=== PATIENT | male | born 1980 | race Caucasian/White ===

== ENCOUNTER → 2019-10-06 11:03 | Outpatient (BNVA) | payer OTHER, SELFPAY | PROVIDERS: Family Provider Family Medicine; PCP Family Medicine; Visit Provider Psychiatry & Neurology Psychiatry | DX: F31.32 Bipolar disorder, current episode depressed, moderate (principal); Z79.899 Other long term (current) drug therapy; F31.2 Bipolar disorder, current episode manic severe with psychotic features | CPT/HCPCS: 80061; 83036 ==

== ENCOUNTER → 2020-03-07 13:20 | Outpatient (BNVA) | payer MEDICARE, MEDICAID, SELFPAY ==
[2019-10-07 11:07] VITALS: BP 153/81; BMI 45.1
== END ==
PROVIDERS: Family Provider Family Medicine; PCP Family Medicine; Visit Provider Nurse Practitioner Psychiatric/Mental Health
DX: F31.32 Bipolar disorder, current episode depressed, moderate (principal)
CPT/HCPCS: 99214

== ENCOUNTER → 2020-04-07 08:05 | Outpatient (BNVA) | payer MEDICARE, MEDICAID, SELFPAY ==
[2019-10-07 11:07] VITALS: BP 153/81; BMI 45.1
== END ==
PROVIDERS: Family Provider Family Medicine; PCP Family Medicine; Visit Provider Nurse Practitioner Psychiatric/Mental Health
DX: F31.32 Bipolar disorder, current episode depressed, moderate (principal)
CPT/HCPCS: 99214

== ENCOUNTER → 2020-06-28 08:27 | Outpatient (BNVA) | payer MEDICARE, MEDICAID, SELFPAY ==
[2019-10-07 11:07] VITALS: BP 153/81; BMI 45.1
== END ==
PROVIDERS: Family Provider Family Medicine; PCP Family Medicine; Visit Provider Nurse Practitioner Psychiatric/Mental Health
DX: F31.32 Bipolar disorder, current episode depressed, moderate (principal)
CPT/HCPCS: 99213

== ENCOUNTER → 2021-01-25 14:07 | Outpatient (BNVA) | payer MEDICARE, MEDICAID, SELFPAY ==
[2019-10-07 11:07] VITALS: BP 153/81; BMI 45.1
== END ==
PROVIDERS: Family Provider Family Medicine; PCP Family Medicine; Referring Provider Nurse Practitioner Family; Visit Provider Specialist
DX: M25.561 Pain in right knee (principal); M25.562 Pain in left knee
CPT/HCPCS: 73560; 73565

== ENCOUNTER → 2021-04-04 14:14 | Outpatient (BNVA) | payer MEDICARE, MEDICAID, SELFPAY ==
[2019-10-07 11:07] VITALS: BP 153/81; BMI 45.1
== END ==
PROVIDERS: Family Provider Family Medicine; PCP Family Medicine; Visit Provider Nurse Practitioner Psychiatric/Mental Health
DX: F12.20 Cannabis dependence, uncomplicated (principal); F39 Unspecified mood [affective] disorder; G89.29 Other chronic pain
CPT/HCPCS: 99214

== ENCOUNTER → 2021-04-18 09:14 | Outpatient (BNVA) | payer MEDICARE, MEDICAID, SELFPAY ==
[2019-10-07 11:07] VITALS: BP 153/81; BMI 45.1
== END ==
PROVIDERS: Family Provider Family Medicine; PCP Family Medicine; Visit Provider Nurse Practitioner Psychiatric/Mental Health
DX: F39 Unspecified mood [affective] disorder (principal); F12.20 Cannabis dependence, uncomplicated
CPT/HCPCS: 99214

== ENCOUNTER → 2021-05-23 08:46 | Outpatient (BNVA) | payer MEDICARE, MEDICAID, SELFPAY ==
[2019-10-07 11:07] VITALS: BP 153/81; BMI 45.1
== END ==
PROVIDERS: Family Provider Family Medicine; PCP Family Medicine; Visit Provider Nurse Practitioner Psychiatric/Mental Health
DX: F39 Unspecified mood [affective] disorder (principal); G89.29 Other chronic pain
CPT/HCPCS: 99213

== ENCOUNTER → 2021-06-20 07:33 | Outpatient (BNVA) | payer MEDICARE, MEDICAID, SELFPAY ==
[2019-10-07 11:07] VITALS: BP 153/81; BMI 45.1
== END ==
PROVIDERS: Family Provider Family Medicine; PCP Family Medicine; Visit Provider Nurse Practitioner Psychiatric/Mental Health
DX: F39 Unspecified mood [affective] disorder (principal); G89.29 Other chronic pain
CPT/HCPCS: 99214

== ENCOUNTER → 2021-10-24 14:46 | Outpatient (BNVA) | payer MEDICARE, MEDICAID, OTHER, SELFPAY ==
[2019-10-07 11:07] VITALS: BP 153/81; BMI 45.1
== END ==
PROVIDERS: Family Provider Family Medicine; PCP Family Medicine; Visit Provider Nurse Practitioner Psychiatric/Mental Health
DX: Z79.899 Other long term (current) drug therapy (principal)
CPT/HCPCS: 80053; 80061; 83036

== ENCOUNTER → 2022-10-29 11:41 | Outpatient (BNVA) | payer MEDICARE, MEDICAID, SELFPAY ==
[2019-10-07 11:07] VITALS: BP 153/81; BMI 45.1
== END ==
PROVIDERS: Family Provider Family Medicine; PCP Family Medicine; Visit Provider Nurse Practitioner Psychiatric/Mental Health
DX: Z79.899 Other long term (current) drug therapy (principal)
CPT/HCPCS: 80053; 80061; 83036

== ENCOUNTER 2023-05-02 20:00 | Outpatient (CLI) | payer MEDICARE, SELFPAY ==
[2019-10-07 11:07] VITALS: BP 153/81; BMI 45.1
== END 2023-05-02 20:01 | disposition home or self-care (01) ==
LOC: SLEEP 05-03 04:40
PROVIDERS: Family Provider Family Medicine; PCP Family Medicine; Visit Provider Nurse Practitioner Psychiatric/Mental Health
DX: G47.33 Obstructive sleep apnea (adult) (pediatric) (principal)
CPT/HCPCS: 95810

== ENCOUNTER → 2023-09-03 13:01 | Outpatient (BNVA) | payer MEDICARE, OTHER, SELFPAY ==
[2019-10-07 11:07] VITALS: BP 153/81; BMI 45.1
== END ==
PROVIDERS: Family Provider Family Medicine; PCP Family Medicine; Visit Provider Nurse Practitioner Psychiatric/Mental Health
DX: Z79.899 Other long term (current) drug therapy (principal)
CPT/HCPCS: 80061; 83036

== ENCOUNTER 2023-10-14 20:00 | Outpatient (CLI) | payer MEDICARE, SELFPAY ==
[2019-10-07 11:07] VITALS: BP 153/81; BMI 45.1
[2023-09-10 13:37] VITALS: BP 166/98; BMI 47.2
== END 2023-10-14 20:01 | disposition home or self-care (01) ==
PROVIDERS: Family Provider Family Medicine; PCP Family Medicine; Visit Provider Nurse Practitioner Psychiatric/Mental Health
DX: G47.33 Obstructive sleep apnea (adult) (pediatric) (principal)
CPT/HCPCS: 95811

== ENCOUNTER → 2023-11-13 11:58 | Outpatient (BNVA) | payer OTHER, SELFPAY ==
[2023-09-10 13:37] VITALS: BP 166/98; BMI 47.2
== END ==
PROVIDERS: Family Provider Family Medicine; PCP Family Medicine; Visit Provider Nurse Practitioner Psychiatric/Mental Health
DX: Z79.899 Other long term (current) drug therapy (principal)
CPT/HCPCS: 80053; 80061; 83036

== ENCOUNTER → 2024-08-11 08:22 | Outpatient (BNVA) | payer OTHER, SELFPAY ==
[2023-09-10 13:37] VITALS: BP 166/98; BMI 47.2
== END ==
PROVIDERS: Family Provider Family Medicine; PCP Family Medicine; Visit Provider Nurse Practitioner Psychiatric/Mental Health
DX: Z79.899 Other long term (current) drug therapy (principal); F31.32 Bipolar disorder, current episode depressed, moderate
CPT/HCPCS: 80061; 83036

== ENCOUNTER → 2024-08-18 09:15 | Outpatient (BNVA) | payer MEDICARE, MEDICAID, SELFPAY ==
[2024-08-13 12:01] VITALS: BP 135/75; BMI 43.4
== END ==
PROVIDERS: Family Provider Family Medicine; PCP Family Medicine; Visit Provider Student in an Organized Health Care Education/Training Program
DX: M79.641 Pain in right hand (principal); M67.441 Ganglion, right hand; M65.311 Trigger thumb, right thumb
CPT/HCPCS: 73130; 99204

== ENCOUNTER 2024-08-27 11:25 | Day surgery (SDC) | payer MEDICARE, MEDICAID, SELFPAY ==
[2024-08-13 12:01] VITALS: BP 135/75; BMI 43.4
[2024-08-27] VITALS (11 sets, daily range): BP systolic 113–185; BP diastolic 61–104; PULSE 55–76; RESP 16–18; TEMP 36.2–36.8; O2SAT 93–99; BMI 45.1
[2024-08-27] MEDS: acetaminophen 1,000 MG/100 ML PIGGYBACK 400 MG IV (11:58)
--- NOTE | 2024-08-27 12:03 | W.PM.OPSUD ---
Surgery/Procedure H&P Update DATE OF PROCEDURE: August 27, 2024 DATE H&P PERFORMED: 08/18/24 H&P UPDATE INFORMATION: I have reviewed H&P completed within last 30 days, I have examined patient prior to procedure and No changes to prior documentation PREOP DIAGNOSIS: Right thumb trigger, right thumb volar cyst PRIMARY INDICATION FOR PROCEDURE: Right thumb trigger, right thumb volar cyst PLANNED PROCEDURE: Operation Date: 08/27/24 14:00 Proposed Procedures p RIGHT Thumb Trigger Finger Release(Right) - Phuc Mallory DO s RIGHT Thumb Volar Cyst Excision(Right) - Phuc Mallory DO
--- NOTE | 2024-08-27 12:34 | ANES.PREANE2 ---
Pre-Anesthetic Assessment Height/Weight: Height 1.8 m Weight 146.964 kg Temp Pulse Resp BP Pulse Ox O2 Del Method 97.2 F L 76 18 185/104 97 Room Air 08/27/24 11:39 08/27/24 11:39 08/27/24 11:39 08/27/24 11:39 08/27/24 11:39 08/27/24 11:39 Preop Diagnosis: Right thumb trigger, right thumb volar cyst Operation Date: 08/27/24 14:00 Proposed Procedures p RIGHT Thumb Trigger Finger Release(Right) - Phuc [place], DO s RIGHT Thumb Volar Cyst Excision(Right) - Phuc [place], DO Familial anesthetic complications: none Was Beta Christy taken within 24 hours: N/A Was Clonidine taken within 24 hours: N/A Social Tobacco and No alcohol 1/2 PPD, Marijuana daily pack years Exam alert, oriented x 3, clear to auscultation bilaterally and regular rate & rhythm Airway Submandibular: within normal limits Cervical ROM: within normal limits Dentition: full History/ROS No significant history except as noted and No significant complaints Pulmonary Exertional Dyspnea and Sleep Apnea CV/HEM Hypertension None reported Hepatic None reported GI None reported Metabolic Diabetes Mellitus and Morbid Obesity [facility] [place] Osteoarthritis/DJD Neuropsych Anxiety and Depression Anesthetic Plan ASA status: 3 Anesthesia: MAC Risk of > 500 ml blood loss (7ml/kg in children): No Medications/Allergies Home Medications ?Medication ?Instructions ?Recorded ?Confirmed ?Last Taken ?Type metformin 500 mg tablet 500 mg PO BID 11/05/23 08/26/24 08/26/24 History lisinopril 20 mg tablet 20 mg PO DAILY 04/17/24 08/26/24 08/25/24 History lovastatin 20 mg tablet 20 mg PO DAILY 04/17/24 08/26/24 08/25/24 History escitalopram oxalate 10 mg tablet 10 mg PO DAILY #30 tabs 07/16/24 08/26/24 08/25/24 Rx risperidone 2 mg tablet 2 mg PO BID #60 tabs 07/16/24 08/26/24 08/26/24 Rx trazodone 100 mg tablet See Rx Instructions PO .q hs PRN 07/16/24 08/26/24 08/25/24 Rx insomnia #60 tabs semaglutide 0.25 mg or 0.5 mg (2 2.5 mg SUBCUT .weekly 08/11/24 08/26/24 08/20/24 History mg/3 mL) subcutaneous pen injector (Ozempic) Allergies Allergy/AdvReac Type Severity Reaction Status Date / Time gabapentin Allergy Unknown Unknown Verified 08/27/24 11:36 corn Allergy ADR-Diarrhe Verified 08/27/24 11:36 a multivitamin (From Allergy ALGY-Rash Verified 08/27/24 11:36 Poly-Vi-Mireille) pediatric multivitamin Allergy ALGY-Rash Verified 08/27/24 11:36 no.192 (From Poly-Vi-Mireille) urethane Allergy ALGY-Rash Verified 08/27/24 11:36 Current Medications Generic Name Dose Route Start Last Admin Trade Name Freq PRN Reason Stop Dose Admin Sodium Chloride 1,000 mls @ 30 mls/hr 08/27/24 11:30 08/27/24 11:58 Sodium Chloride 0.9% IV 08/28/24 11:29 30 mls/hr .Q24H LANEY Administration PFSH Anesthesia Medical History (Updated 08/24/24 @ 23:13 by Phuc Mallory DO) Sleep apnea, obstructive past hx of diagnosis Chronic pain Chronic pain Unspecified episodic mood disorder Psychiatric care Family History Other CAD (coronary artery disease) Diabetes Hyperlipidemia Hypertension Social History Smoking and tobacco/nicotine status: current every day tobacco/nicotine user cigarettes Packs smoked per day: 0.5 Years cigarettes smoked: 24 Quit status (tobacco/nicotine): not considering quitting Second hand smoke exposure: No Alcohol intake: former Former alcohol use details: due to corn allergy Substance/Drug Use: current Substance/Drug use frequency: daily Other substance/drug use details: medical card Adopted: No Caregiver/support person: No Lives independently: Yes Household members: none Housing: Other Details: small shed's Marital status: Single Number of children: 0 Highest education level completed: Some College, No Degree service: No Current occupational status: disabled Pets and animals: Yes (2 dogs) Pets & animals: dog(s) Leisure activites: games, reading and other Sexually active: No Do you think of yourself as: Straight/Heterosexual Current gender identity: Male Edith/Roman Catholic: None Special edith needs: No Agree to transfusion: Yes
[2024-08-27] MEDS: ceFAZolin 3,000 MG in sodium chloride 0.9% (plus) 100 ML 200 MG IV (12:37)
[2024-08-27] MEDS: ROPivacaine 0.5% SDV 30 mL 150 MG INJECTION (13:30)
--- NOTE | 2024-08-27 13:40 | P.BOP_ITS ---
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
--- NOTE | 2024-08-27 13:45 | PM.OP ---
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 Patient has been worked up in the outpatient setting and is failed conservative treatment approach.? Patient has a mass is continue to bother him and slowly gotten bigger as well as having catching of the right thumb consistent with trigger. Patient has tried treating conservatively with but continues to have pain and issues.? We talked about treatment options and ultimately patient would like to proceed with a right?thumb?volar cyst excision and right thumb trigger?release. At this point time I feel this is most appropriate as this is next best step in treatment option.? We talked about the risk benefits complications and alternatives with surgical nonsurgical treatment options.? Understanding risk of surgery patient agrees to proceed with a right?thumb?volar cyst excision and right thumb trigger?release. All questions answered. Procedure: Patient was seen evaluated in the preoperative holding area.? Consent was reviewed and signed with patient.? Correct extremity was then marked.? Patient was then seen and evaluated by the anesthesia department once cleared for surgery patient was then taken back to the operative suite patient was placed in supine position and all bony prominences well-padded the patient was properly secured to the bed.? Armboard was applied to the right upper extremity and the right upper extremity was then placed with a nonsterile tourniquet to the right upper arm.? This point time the right upper extremity was then prepped and draped in standard orthopedic fashion.? A final timeout was performed.? Patient received appropriate preoperative antibiotics. Prior to going up to the tourniquet I subsequently performed a digital block under sterile aseptic technique of the right thumb. Once appropriately anesthetized proceed with surgery. Esmarch tourniquet was used exsanguinate the right upper extremity and tourniquet was insufflated to 250 mmHg.? First my attention was started towards the volar cyst this was on the ulnar side volarly directly over the proximal phalanx and over the oblique luisa system. A oblique incision was subsequently started off directly over this mass with plan for Stacey incisions both proximally and distally if necessary. Sharp scalpel incision was made through skin and subcutaneous tissue Littler dissection scissors was used to dissect out the digital nerves these were protected with Kasdan's by my technical administrative assistant. 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 Care was made to not injure the oblique luisa system. I then subsequently circumferentially dissected out and released all adhesions of this mass. The mass totaled 1.5 cm x 1 cm x 1 cm. I then subsequently dissected circumferentially around this directly as it communicated to the flexor tendon sheath and then utilized bipolar electrocautery to coagulate this at the base leaving behind no residual tissue consistent with the mass. This was then subsequently placed in specimen cup and sent for specimen/pathology. Once this was then done again confirming protection of my digital bundles I then carried my dissection proximally and attention towards the A1 luisa trigger release. Once this was proximal to my incision I switched to Littler dissection scissors this I then subsequently spread longitudinally in the planes of the digital nerves.? Once these were identified these were protected by my technical administrative assistant with Kasdan retractors.? Next I identified directly over the A1 luisa of the right?thumb.? This was significantly thickened and identified to be the area of patient's?thumb?triggering.? I used sharp scalpel to incise the A1 luisa and then utilized my technical administrative assistant to retract the ability and under loupe magnification released the entirety of the A1 luisa both proximally and distally up to the oblique luisa.? This point time the tendon was then inspected and found to be healthy there was some inflammation around the tendon itself but no evidence of tearing and no need for any debridement.? The Ragnell was used to pull the tendon out of the incision and there was no mechanical?triggering. I then took the patient's?thumb?through range of motion no recurrent?triggering was noted.? ?I then let the tourniquet down identified and maintained exact hemostasis with bipolar electrocautery irrigated the wound bed and then closed the incision with interrupted nylon suture. Incision sites were then dressed with Xeroform 4 x 4's Kerlix Jimi wrap and an Miguel wrap.? Patient was then awakened from anesthesia and taken to PACU in stable condition. Disposition: Patient taken to PACU in stable condition recovering well.? Dressing on in place clean dry and intact.? Patient was receive appropriate discharge instruction as well as pain medication postoperatively.? Patient may be allowed weightbearing as tolerated to the right hand and encourage range of motion once dressing come down after 72 hours.? Encourage patient however no heavy lifting. Patient to follow-up with orthopedics in the office in 2 weeks.? Patient understands and agrees with current plan.? All questions answered.
--- NOTE | 2024-08-27 13:53 | PM.PACU ---
PACU note Narrative: Patient is a 43-year-old male just underwent a right trigger thumb. Patient transferred to PACU in stable condition. pt is still under anesthesia and not arousable upon exam. Dressing on hand is dry and in place. Patient's fingers are warm and well-perfused. normal cap refill under 2 seconds. Exam: unarousable Disposition: discharged
[2024-08-27] MEDS: ondansetron 2 mg/ML SDV 2 mL 4 MG IVP ×2 (14:15)
--- NOTE | 2024-08-27 15:22 | ANE.PACU2 ---
Inpatient post-anesthesia follow up: Airway intact: Yes Vital signs: Temperature 98.2 F Pulse Rate 60 Respiratory Rate 17 Blood Pressure 161/100 Pulse Oximetry 96 Oxygen Delivery Me thod Room Air Oxygen Flow Rate 2 Fraction of Inspir ed Oxygen Hydration adequate: Yes Nausea and vomiting: No Pain level: 1 Mental status: Baseline
== END 2024-08-27 14:59 | disposition home or self-care (01) ==
PROVIDERS: PCP Family Medicine; Visit Provider Student in an Organized Health Care Education/Training Program
PROC: (CPT 26055; principal; 2024-08-27 14:00)
PROC: (CPT 26160; 2024-08-27 14:00)
DX: M65.311 Trigger thumb, right thumb (principal); D48.19 Other specified neoplasm of uncertain behavior of connective and other soft tissue; G47.33 Obstructive sleep apnea (adult) (pediatric); I10 Essential (primary) hypertension; E11.9 Type 2 diabetes mellitus without complications; E66.01 Morbid (severe) obesity due to excess calories; Z68.42 Body mass index [BMI] 45.0-49.9, adult; M19.90 Unspecified osteoarthritis, unspecified site; F41.8 Other specified anxiety disorders; Z79.84 Long term (current) use of oral hypoglycemic drugs; F17.210 Nicotine dependence, cigarettes, uncomplicated
CPT/HCPCS: 26160; 36416; 82962; 88304; J0131; J0690; J1885; J2405; J2704; J2795; J3010; J7030; J9999

== ENCOUNTER → 2024-09-09 13:44 | Outpatient (BNVA) | payer MEDICAID, SELFPAY ==
[2024-08-13 12:01] VITALS: BP 135/75; BMI 43.4
== END ==
PROVIDERS: PCP Family Medicine; Visit Provider Physician Assistant
DX: Z98.890 Other specified postprocedural states (principal)
CPT/HCPCS: 99024

== ENCOUNTER → 2024-11-02 08:43 | Outpatient (BNVA) | payer MEDICARE, MEDICAID, SELFPAY ==
[2024-08-13 12:01] VITALS: BP 135/75; BMI 43.4
== END ==
PROVIDERS: PCP Family Medicine; Visit Provider Nurse Practitioner Psychiatric/Mental Health
DX: Z79.899 Other long term (current) drug therapy (principal)
CPT/HCPCS: 80053; 80061; 83036